=== PATIENT | female | born 1950 | race Caucasian/White ===

== ENCOUNTER 2020-05-22 13:21 | Emergency (ER) | payer OTHER ==
[~2020-05-22] VITALS: Ht 170.2 cm; Wt 70.3 kg
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
--- NOTE | 2020-05-22 13:26 | NUR ---
SEEN AND EXAMINED BY .
--- NOTE | 2020-05-22 13:49 | NUR ---
PT IS WHEELED TO CT SCAN VIA [facility].
--- NOTE | 2020-05-22 16:40 | NUR ---
SPOKED TO [facility] FOR PT DISCHARGED.
--- NOTE | 2020-05-22 17:17 | NUR ---
ARRANGED BLS TRANSPORT WITH [facility]URN[facility], ETA 1800.
--- NOTE | 2020-05-22 18:01 | NUR ---
REPORT GIVEN TO EMS FOR PT TRANSFER BACK TO FACILITY.
[2020-05-22 18:02] VITALS: BP 117/72
== END 2020-05-22 18:03 | disposition home or self-care (01) ==
LOC: ER 13:22
DX: S80.211A Abrasion, right knee, initial encounter (principal); S00.211A Abrasion of right eyelid and periocular area, initial encounter; S09.8XXA Other specified injuries of head, initial encounter; R51 Headache; W01.0XXA Fall on same level from slipping, tripping and stumbling without subsequent striking against object, initial encounter; Y93.01 Activity, walking, marching and hiking; Y92.89 Other specified places as the place of occurrence of the external cause; Y99.8 Other external cause status
CPT/HCPCS: 70450-TC; 73564-TC; 73590-TC

== ENCOUNTER 2023-10-21 12:44 | Inpatient (IN) | payer MEDICARE, OTHER ==
[~2023-10-21] VITALS: Ht 154.9 cm; Wt 81.6 kg
[2023-10-21] MEDS ORDERED: IOHEXOL-350 100 ML VIAL IV ONE ×2 (12:53→13:07)
[2023-10-21 13:06] LABS: BASOPHILS % (AUTO) 0.2 % (0.0-2.0); EOSINOPHILS % (AUTO) 0.2 % (0.0-6.0); HEMATOCRIT 37 % (33-45); HEMOGLOBIN 11.9 g/dL (11.5-14.8); LYMPHOCYTES # (AUTO) 0.5 K/uL (0.8-4.8); LYMPHOCYTES % (AUTO) 5.7 % (20.0-44.0); MEAN CORPUSCULAR HEMOGLOBIN 30 PG (26.0-33.0); MEAN CORPUSCULAR HGB CONC 33 g/dl (31.0-36.0); MEAN CORPUSCULAR VOLUME 93 fL (82-100); MONOCYTES # (AUTO) 0.4 K/uL (0.1-1.30); MONOCYTES % (AUTO) 4.3 % (2.0-12.0); NEUTROPHILS # (AUTO) 8.3 K/uL (1.8-8.9); NEUTROPHILS % (AUTO) 89.6 % (43.0-81.0); PLATELET COUNT (AUTO) 283 K/uL (150-450); RED BLOOD CELL COUNT(AUTO) 3.96 MIL/uL (4.0-5.2); RED CELL DISTRIBUTION WIDTH 13.6 % (11.5-15.0); WHITE BLOOD COUNT (AUTO) 9.3 K/uL (4.3-11.0)
[2023-10-21 13:17] LABS: INR 0.95 (0.91-1.10); PARTIAL THROMBOPLASTIN TIME 23.6 SEC (24.3-34.3); PROTHROMBIN TIME 10.1 SECS (9.2-11.1)
[2023-10-21 13:21] LABS: ALANINE AMINOTRANSFERASE 16 U/L (12-78); ALBUMIN 3.8 g/dL (3.4-5.0); ALKALINE PHOSPHATASE 87 U/L (46-116); ASPARTATE AMINOTRANSFERASE 21 U/L (15-37); BILIRUBIN,DIRECT 0.1 mg/dL (0.0-0.2); BILIRUBIN,TOTAL 0.4 mg/dL (0.2-1.0); CALCIUM, SERUM 9.1 mg/dL (8.5-10.1); CARBON DIOXIDE 24 mmol/L (21-32); CHLORIDE 98 mmol/L (98-107); GLUCOSE 136 mg/dL (74-106); POTASSIUM 4.3 mmol/L (3.5-5.1); SODIUM SERUM 130 mmol/L (136-145); TOTAL PROTEIN, SERUM 7.4 g/dL (6.4-8.2); UREA NITROGEN, BLOOD 12 mg/dL (7-18)
[2023-10-21] MEDS ORDERED: ALEN35TA51 PO (14:01)
[2023-10-21] MEDS ORDERED: METO25TA4 PO (14:01)
[2023-10-21] MEDS ORDERED: DOCU100C36 PO (14:01)
[2023-10-21] MEDS ORDERED: IBUP-1957 PO (14:01)
[2023-10-21] MEDS ORDERED: ATOR40TA PO (14:01)
[2023-10-21] MEDS: LEVETIRACETAM (500MG) 1,000 MG in IV NS 0.9% 90 ML IV SCH (14:02)
[2023-10-21 14:15] VITALS: O2SAT 99
[2023-10-21] MEDS ORDERED: LORAZEPAM INJ 2 MG/ML VIAL IV PRN (14:30)
[2023-10-21] MEDS ORDERED: ONDANSETRON HCL/PF 4 MG/2 ML VIAL IVP PRN (14:30)
[2023-10-21] MEDS ORDERED: MAGNESIUM HYDROXIDE 30 ML UDC PO PRN (14:30)
[2023-10-21] MEDS ORDERED: MAG HYDROX/AL HYDROX/SIMETH 30 ML UDC PO PRN (14:30)
[2023-10-21] MEDS ORDERED: Z GUARD REMEDY 4 OZ OINT TP PRN (14:30)
[2023-10-21 16:00] VITALS: BP 113/72; TEMP 98.4; O2SAT 98
[2023-10-21] MEDS: IV NS 0.9% 1,000 ML IV PRN (17:29)
[2023-10-21 20:23] VITALS: BP 141/80; TEMP 98.1; O2SAT 98
[2023-10-21] MEDS: METOPROLOL SUCCINATE 25 MG TAB.SR.24H PO SCH ×3 (21:23→22:00)
[2023-10-22 00:38] VITALS: BP 135/73; TEMP 98.6; O2SAT 100
[2023-10-22] MEDS ORDERED: LEVETIRACETAM (500MG) 500 MG/5 ML VIAL IV ONE (01:24)
[2023-10-22] MEDS: LEVETIRACETAM (500MG) 1,000 MG in IV NS 0.9% 90 ML IV SCH ×2 (01:32→20:31)
[2023-10-22] MEDS: IV NS 0.9% 1,000 ML IV PRN (02:06)
[2023-10-22 07:15] LABS: CREATININE 0.7 mg/dL (0.6-1.3); MAGNESIUM 2.6 mg/dL (1.8-2.4); PHOSPHORUS 3.2 mg/dL (2.5-4.9); POTASSIUM 3.8 mmol/L (3.5-5.1)
[2023-10-22 08:43] VITALS: BP 132/84; TEMP 97.5; O2SAT 95
[2023-10-22 11:20] LABS: BASOPHILS % (AUTO) 0.4 % (0.0-2.0); EOSINOPHILS % (AUTO) 0.5 % (0.0-6.0); HEMATOCRIT 36 % (33-45); HEMOGLOBIN 11.9 g/dL (11.5-14.8); LYMPHOCYTES # (AUTO) 1.1 K/uL (0.8-4.8); LYMPHOCYTES % (AUTO) 13.8 % (20.0-44.0); MEAN CORPUSCULAR HEMOGLOBIN 31 PG (26.0-33.0); MEAN CORPUSCULAR HGB CONC 34 g/dl (31.0-36.0); MEAN CORPUSCULAR VOLUME 93 fL (82-100); MONOCYTES # (AUTO) 0.8 K/uL (0.1-1.30); MONOCYTES % (AUTO) 10.3 % (2.0-12.0); NEUTROPHILS # (AUTO) 5.9 K/uL (1.8-8.9); PLATELET COUNT (AUTO) 256 K/uL (150-450); RED BLOOD CELL COUNT(AUTO) 3.82 MIL/uL (4.0-5.2); RED CELL DISTRIBUTION WIDTH 13.7 % (11.5-15.0); WHITE BLOOD COUNT (AUTO) 7.9 K/uL (4.3-11.0)
[2023-10-22 12:04] VITALS: BP 116/70; TEMP 99; O2SAT 97
[2023-10-22 12:52] LABS: THYROID STIMULATING HORMONE 1.213 uIU/mL (0.358-3.74)
[2023-10-22] MEDS: ACETAMINOPHEN 325 MG TABLET PO PRN (15:04)
[2023-10-22 16:34] VITALS: BP 142/78; TEMP 98.1; O2SAT 100
[2023-10-22] MEDS: METOPROLOL SUCCINATE 25 MG TAB.SR.24H PO SCH ×2 (21:09→22:00)
[2023-10-22 22:14] VITALS: BP 132/70; TEMP 98.1; O2SAT 97
[2023-10-23] MEDS: IV NS 0.9% 1,000 ML IV PRN (04:42)
[2023-10-23 07:03] LABS: BASOPHILS % (AUTO) 0.6 % (0.0-2.0); EOSINOPHILS # (AUTO) 0.1 K/uL (0.0-0.7); EOSINOPHILS % (AUTO) 2.3 % (0.0-6.0); HEMATOCRIT 30 % (33-45); LYMPHOCYTES # (AUTO) 1.1 K/uL (0.8-4.8); LYMPHOCYTES % (AUTO) 22.1 % (20.0-44.0); MEAN CORPUSCULAR HEMOGLOBIN 31 PG (26.0-33.0); MEAN CORPUSCULAR HGB CONC 33 g/dl (31.0-36.0); MEAN CORPUSCULAR VOLUME 92 fL (82-100); MONOCYTES # (AUTO) 0.5 K/uL (0.1-1.30); MONOCYTES % (AUTO) 10.1 % (2.0-12.0); NEUTROPHILS # (AUTO) 3.1 K/uL (1.8-8.9); NEUTROPHILS % (AUTO) 64.9 % (43.0-81.0); PLATELET COUNT (AUTO) 232 K/uL (150-450); RED BLOOD CELL COUNT(AUTO) 3.27 MIL/uL (4.0-5.2); RED CELL DISTRIBUTION WIDTH 13.4 % (11.5-15.0); WHITE BLOOD COUNT (AUTO) 4.8 K/uL (4.3-11.0)
[2023-10-23 07:44] LABS: CALCIUM, SERUM 8.3 mg/dL (8.5-10.1); CREATININE 0.6 mg/dL (0.6-1.3); MAGNESIUM 1.9 mg/dL (1.8-2.4); POTASSIUM 3.5 mmol/L (3.5-5.1)
[2023-10-23 08:00] VITALS: BP 121/70; TEMP 98.6; O2SAT 97
[2023-10-23] MEDS: LEVETIRACETAM (500MG) 1,000 MG in IV NS 0.9% 90 ML IV SCH (09:28)
[2023-10-23 12:00] VITALS: BP 130/81; TEMP 98.1; O2SAT 96
[2023-10-23] MEDS: ACETAMINOPHEN 325 MG TABLET PO PRN (12:47)
[2023-10-23 16:00] VITALS: BP 128/70; TEMP 98.8; O2SAT 96
[2023-10-24 10:42] LABS: CORTISOL AM 7.8 ug/dL (6.2-19.4)
[2023-10-24 17:08] LABS: ACTH, PLASMA 18.7 pg/mL (7.2-63.3)
== END 2023-10-23 19:00 | DRG 101 ==
LOC: ER 12:48 → TELE 14:28
PROVIDERS: ADMIT Internal Medicine
DX: R56.9 Unspecified convulsions (principal); E87.1 Hypo-osmolality and hyponatremia; I69.351 Hemiplegia and hemiparesis following cerebral infarction affecting right dominant side; M51.06 Intervertebral disc disorders with myelopathy, lumbar region; E86.1 Hypovolemia; I10 Essential (primary) hypertension; M51.16 Intervertebral disc disorders with radiculopathy, lumbar region; Z79.83 Long term (current) use of bisphosphonates; Z79.899 Other long term (current) drug therapy; Z87.820 Personal history of traumatic brain injury; W34.00XS Accidental discharge from unspecified firearms or gun, sequela; S01.9 Open wound of unspecified part of head; E78.5 Hyperlipidemia, unspecified; M81.0 Age-related osteoporosis without current pathological fracture; G93.89 Other specified disorders of brain; Z86.2 Personal history of diseases of the blood and blood-forming organs and certain disorders involving the immune mechanism; Z98.890 Other specified postprocedural states
CPT/HCPCS: 36415; 70450-TC; 70496-TC; 70498-TC; 71045-TC; 80048-TC; 80061-TC; 80076-TC; 82024; 82533; 83735-TC; 83935-TC; 84100-TC; 84300-TC; 84439-TC; 84443-TC; 84484-TC; 85025-TC; 85730-TC; 87081-TC; 97112-TC; 97116-TC; 97530-TC; A4223; G0378; J1953; J7030; Q9967

== ENCOUNTER 2023-12-26 14:00 | Emergency (ER) | payer MEDICARE, OTHER ==
[~2023-12-26] VITALS: Ht 170.2 cm; Wt 75.3 kg
[~2023-12-26 14:00] MED LIST: ALEN35TA51 PO; ATOR40TA PO; DOCU100C36 PO; IBUP-1957 PO; METO25TA4 PO
[2023-12-26] MEDS ORDERED: ONDANSETRON HCL/PF 4 MG/2 ML VIAL ONE ×2 (14:22→18:57)
[2023-12-26] MEDS: ONDANSETRON HCL/PF 4 MG/2 ML VIAL IVP ONE (15:12)
[2023-12-26] MEDS: IV NS 0.9% 1,000 ML BAG IV ONE (15:13)
[2023-12-26 15:57] LABS: BASOPHILS % (AUTO) 0.2 % (0.0-2.0); EOSINOPHILS % (AUTO) 0.1 % (0.0-6.0); HEMATOCRIT 35 % (33-45); HEMOGLOBIN 11.6 g/dL (11.5-14.8); LYMPHOCYTES % (AUTO) 12.3 % (20.0-44.0); MEAN CORPUSCULAR HEMOGLOBIN 31 PG (26.0-33.0); MEAN CORPUSCULAR HGB CONC 33 g/dl (31.0-36.0); MEAN CORPUSCULAR VOLUME 92 fL (82-100); MONOCYTES # (AUTO) 0.9 K/uL (0.1-1.30); MONOCYTES % (AUTO) 10.5 % (2.0-12.0); NEUTROPHILS # (AUTO) 6.2 K/uL (1.8-8.9); NEUTROPHILS % (AUTO) 76.9 % (43.0-81.0); PLATELET COUNT (AUTO) 235 K/uL (150-450); RED BLOOD CELL COUNT(AUTO) 3.79 MIL/uL (4.0-5.2); RED CELL DISTRIBUTION WIDTH 13.3 % (11.5-15.0); WHITE BLOOD COUNT (AUTO) 8.1 K/uL (4.3-11.0)
[2023-12-26 16:15] LABS: CALCIUM, SERUM 8.9 mg/dL (8.5-10.1); CREATININE 0.7 mg/dL (0.6-1.3); POTASSIUM 3.5 mmol/L (3.5-5.1)
[2023-12-26 16:15] LABS: APPEARANCE,URINE CLEAR (CLEAR); BILIRUBIN,URINE NEGATIVE (NEGATIVE); BLOOD, URINE 2+ Ery/uL (NEGATIVE); COLOR,URINE YELLOW (YELLOW); KETONES,URINE 1+ mg/dL (NEGATIVE); LEUKOCYTE ESTERASE ,URINE 2+ (NEGATIVE); NITRITE, URINE NEGATIVE (NEGATIVE); PROTEIN,URINE NEGATIVE (NEGATIVE); UGLUCOSE NEGATIVE (NEGATIVE); UROBILINOGEN,URINE 0.2 EU/dL (0.2)
[2023-12-26 16:22] LABS: ALBUMIN 3.6 g/dL (3.4-5.0); BILIRUBIN,DIRECT 0.2 mg/dL (0.0-0.2); BILIRUBIN,TOTAL 0.7 mg/dL (0.2-1.0); TOTAL PROTEIN, SERUM 6.9 g/dL (6.4-8.2)
[2023-12-26 16:53] LABS: ADD URINE CULTURE YES; BACTERIA,URINE Rare /HPF (None Seen)
[2023-12-26] MEDS: CEFTRIAXONE 1GM BAG (ER ONLY) 1 GM/50 ML PIGGYBACK IV ONE (17:00)
[2023-12-26] MEDS: ONDANSETRON HCL/PF - ER 4 MG/2 ML VIAL IV ONE (17:00)
[2023-12-26] MEDS ORDERED: ONDA4TAB11 PO (17:45)
[2023-12-26] MEDS ORDERED: CEPH500C2 PO (17:45)
[2023-12-26] MEDS ORDERED: CEFTRIAXONE 1GM BAG (ER ONLY) 50 ML IV ONE (18:57)
[2023-12-26 19:41] VITALS: BP 136/96; TEMP 97.8; O2SAT 100
== END 2023-12-26 19:42 | disposition home or self-care (01) ==
LOC: ER 14:13
DX: N39.0 Urinary tract infection, site not specified (principal); R11.2 Nausea with vomiting, unspecified; I10 Essential (primary) hypertension; Z20.822 Contact with and (suspected) exposure to COVID-19
CPT/HCPCS: 99285; 96365; 96361; 96375; 87426; 96376; 85025; 80048; 87086; 87804; 83690; 80076; 81001; 36415; 87880; J2405 ×3; J7030 ×2; J0696; 86403-TC

== ENCOUNTER 2024-11-23 12:44 | Emergency (ER) | payer MEDICARE, MEDICAID ==
[~2024-11-23] VITALS: Ht 170.2 cm; Wt 77.1 kg
[~2024-11-23 12:44] MED LIST changes: +CEPH500C2 PO; +ONDA4TAB11 PO
[2024-11-23 12:47] VITALS: TEMP 97.9
[2024-11-23 13:08] LABS: BASOPHILS % (AUTO) 0.3 % (0.0-2.0); EOSINOPHILS # (AUTO) 0.1 K/uL (0.0-0.7); HEMATOCRIT 35 % (33-45); HEMOGLOBIN 11.4 g/dL (11.5-14.8); LYMPHOCYTES # (AUTO) 1.1 K/uL (0.8-4.8); LYMPHOCYTES % (AUTO) 22.5 % (20.0-44.0); MEAN CORPUSCULAR HEMOGLOBIN 31 PG (26.0-33.0); MEAN CORPUSCULAR HGB CONC 32 g/dl (31.0-36.0); MEAN CORPUSCULAR VOLUME 95 fL (82-100); MONOCYTES # (AUTO) 0.5 K/uL (0.1-1.30); MONOCYTES % (AUTO) 9.9 % (2.0-12.0); NEUTROPHILS # (AUTO) 3.1 K/uL (1.8-8.9); NEUTROPHILS % (AUTO) 65.3 % (43.0-81.0); PLATELET COUNT (AUTO) 248 K/uL (150-450); RED BLOOD CELL COUNT(AUTO) 3.72 MIL/uL (4.0-5.2); RED CELL DISTRIBUTION WIDTH 14.2 % (11.5-15.0); WHITE BLOOD COUNT (AUTO) 4.7 K/uL (4.3-11.0)
[2024-11-23 13:30] LABS: ALBUMIN 3.5 g/dL (3.4-5.0); BILIRUBIN,DIRECT 0.1 mg/dL (0.0-0.2); BILIRUBIN,TOTAL 0.3 mg/dL (0.2-1.0); CALCIUM, SERUM 8.8 mg/dL (8.5-10.1); CREATININE 0.8 mg/dL (0.6-1.3); POTASSIUM 4.1 mmol/L (3.5-5.1)
[2024-11-23 15:06] VITALS: BP 110/76; O2SAT 97
== END 2024-11-23 14:51 ==
LOC: ER 12:46
DX: R56.9 Unspecified convulsions (principal); R53.1 Weakness; R53.83 Other fatigue; I10 Essential (primary) hypertension; Z79.899 Other long term (current) drug therapy
CPT/HCPCS: 36415; 70450-TC; 71045-TC; 80048-TC; 80076-TC; 85025-TC